=== PATIENT | male | born 1980 | race African-American/Black ===

== ENCOUNTER 2023-11-01 18:36 | Emergency (ER) | payer SELFPAY ==
[2023-11-01 18:43] VITALS: BP 155/98; BMI 29.6
--- NOTE | 2023-11-01 18:45 | EDRN ---
PT on cell phone during entire triage and asked to return to triage when he has completed his calls.
--- NOTE | 2023-11-01 19:36 | ED.GENMED ---
History of Present Illness
General
Chief Complaint: Abdominal Symptoms
Source: patient
Exam Limitations: none
Time Seen by Provider: 11/01/23 19:34
Nursing documentation reviewed up to this point in time: agreed with
History of Present Illness
History of Present Illness:
Patient is a 43-year-old male who presents to the ER complaining nausea vomiting. Patient was out last night and had 4 shots of tequila (last drink at 1:30 AM) but started vomiting right after and has vomited since. He denies any abdominal pain
fever chills no other sick contacts at home.
Past History
Past History
ED Past Medical History: None; Negative Asthma, HTN, Hypercholesterolemia or NIDDM
ED Past Surgical History: None
Social History
Tobacco: Smoker
Alcohol: Occasional
Personal: Single
Living: alone
Review of Systems
Review of Systems
Allergies reviewed?: Yes
Other source history: family
All Other Systems: ROS reviewed and negative except as documented in HPI and ROS
Constitutional: Reports no symptoms; Denies fever, fatigue or chills
Respiratory: Reports no symptoms
Cardiac: Reports no symptoms
ABD/GI: Reports nausea and vomiting; Denies abdominal pain or diarrhea
: Reports no symptoms
Skin: Reports no symptoms
Neurological: Reports no symptoms
Psychiatric: Reports no symptoms
Phy Exam
General Physical Exam
General Presentation: no apparent distress
General age: appears stated age
General Skin: warm and dry
General Habitus: normal
General Mental: alert
General Hydration: appears well hydrated
Cardiovascular Exam
Cardiovascular Exam: regular rate/rhythm, no murmur and normal peripheral pulses
Pulmonary Exam
Pulmonary Exam: lungs clear and no respiratory distress
Gastrointestinal Exam
Gastrointestinal Exam: normal bowel sounds, non tender and soft
Neurological Exam
Neurological Exam: alert and oriented x3
Musculoskeletal Exam
Musculoskeletal Exam: full ROM
Skin Exam
Skin Exam: normal color and warm/dry
Psychiatric Exam
Psychiatric Exam: normal mood/affect
Course
Orders/Labs/Results
Orders:
Orders
11/01/23 20:22
IV Insert/Care/Rem.- Treatment PRN
0.9% Sodium Chloride 1000 ml [Nss] 1,000 ml IV BOLUS
11/01/23 20:23
Ondansetron Injectable [Zofran] 4 mg IV NOW STA
11/01/23 20:34
Complete Blood Count/With Diff Urgent
Comprehensive Metabolic Panel Urgent
Lipase Urgent
Abnormal Lab Results
11/01/23
20:34
MCH 31.8 H pg
(27.0-31.0)
Absolute Neuts (auto) 7.1 H 10^3/uL
(1.4-6.5)
Glucose 112 H mg/dl
(70-99)
Albumin 5.1 H g/dl
(3.5-5.0)
11/01/23 20:34
11/01/23 20:34
Vital Signs
Initial and Last Documented VS:
Initial Vital Signs
Temp Pulse Resp BP Pulse Ox
98 F 83 16 155/98 98
11/01/23 18:43 11/01/23 18:43 11/01/23 18:43 11/01/23 18:43 11/01/23 18:43
Last Documented Vital Signs
Temp Pulse Resp BP Pulse Ox
98 F 72 18 131/88 99
11/01/23 18:43 11/01/23 22:21 11/01/23 22:21 11/01/23 22:21 11/01/23 22:21
MDM/Problems Addressed
Differential Diagnosis Includes:
Not limited to viral syndrome, vomiting related to alcohol use dehydration
MDM/Problems Addressed:
Patient consumed alcohol last night for shots and started vomiting around 1:30 AM after drinking tequila. He has vomited intermittently throughout the day. He denies any abdominal pain fever chills no other sick contacts. Patient presents awake
alert no acute distress afebrile normal white count stable labs normal renal function. Patient received Zofran fluids feeling much better tolerated oral fluids .Feels well enough to go home . Likely from alcohol use.
*Pulse Oximetry
Patient hypoxic: no
*Critical Care Note
Total Time (30-74mins, 75-104mins- exclusive of procedures): Not Applicable
ED Attending Note
-
Portions of this chart may have been created with voice recognition software.� Occasional wrong word or��sound alike� substitutions may have occurred due to the inherent limitations of voice recognition software.
Discharge Plan
Departure
Patient Disposition: Home (Routine Discharge)
Date of Disposition: 11/01/23
Time of Disposition: 22:44
Patient with high blood pressure during this ER visit?: Yes
Condition: Fair
Covid-19: Not Applicable
Discharge Problem:
Nausea & vomiting
Instructions: Nausea and Vomiting, Adult (DC)
Referrals:
UNKNOWN - PT DOES,NOT KNOW [Family Provider] -
Activity Restrictions/Additional Instructions:
Clear liquids for the next 24 hours follow bland solid foods.
Follow-up with your family doctor in the next several days as needed.
return if any worsening of symptoms
Interventions
Interventions:
*Risk Screen - Suicide Last Done: 11/01/23 18:43
*Neglect/Abuse Screening Last Done: 11/01/23 18:43
*ED COVID-19 Vaccine History Last Done: 11/01/23 18:43
AT-Zcmtmy-Mingbioacq Assessment Last Done: 11/01/23 20:22
Discharge Date and Time
Print Language: KHMER
[2023-11-01] MEDS: ZOFRAN 4 MG IV (20:34)
[2023-11-01] MEDS: NSS 1000 IV (20:34)
[2023-11-01 20:42] LABS: % Basophils 0.2 % (0-2); % Eosinophils 1.7 % (0-6); % Immature Granulocytes 0.4 % (0-0.5); % Lymphocytes 20.8 % (20.5-51.1); % Neutrophils 71.9 % (42.2-75.2); Absolute Eosinophils 0.2 10^3/uL (0-0.7); Absolute Lymphocytes 2.1 10^3/uL (1.2-3.4); Absolute Monocytes 0.5 10^3/uL (0.1-0.6); Absolute Neutrophils 7.1 10^3/uL (1.4-6.5); Hematocrit 43.2 % (39.0-52.0); Hemoglobin 15.5 g/dL (13.0-18.0); Mean Corp Hgb Conc. 35.9 g/dL (33.0-37.0); Mean Corpuscular Hgb 31.8 pg (27.0-31.0); Mean Corpuscular Volume 88.7 fL (80.0-94.0); Nucleated Red Blood Cells % 0 % (-); Platelet Count 239 10^3/uL (130-400); Red Blood Cell Count 4.87 10^6/uL (4.70-6.10); Red Cell Dist. Width 13.7 % (11.5-14.5); White Blood Cell Count 9.9 10^3/uL (4.8-10.8)
[2023-11-01 21:06] LABS: ALT (SGPT) 25 U/L (0-50); AST (SGOT) 33 U/L (17-59); Albumin 5.1 g/dl (3.5-5.0); Alkaline Phosphatase 47 U/L (38-126); Blood Urea Nitrogen 15 mg/dl (9-20); Calcium 10.2 mg/dl (8.4-10.2); Carbon Dioxide 25 mmol/L (22-30); Chloride 104 mmol/L (98-107); Estimated Creatinine Clearance 97 ml/min; Glucose 112 mg/dl (70-99); Lipase 186 U/L (23-300); Potassium 4.4 mmol/L (3.5-5.1); Sodium 139 mmol/L (135-145); Total Bilirubin 1.1 mg/dl (0.2-1.3); Total Protein 8.1 g/dl (6.3-8.2); eGFR > 60.00
[2023-11-01 22:21] VITALS: BP 131/88
== END 2023-11-01 23:02 | disposition home or self-care (01) ==
LOC: EMR 18:36
PROVIDERS: Nurse Practitioner; EMERGENCY PHYSICIAN Emergency Medicine
DX: R11.2 Nausea with vomiting, unspecified (principal); F17.200 Nicotine dependence, unspecified, uncomplicated
CPT/HCPCS: 99283; 96374; 80053; 83690; 85025

== ENCOUNTER 2024-06-02 14:04 | Emergency (ER) | payer OTHER, SELFPAY ==
[2024-06-02 14:09] VITALS: BP 136/78
[2024-06-02 14:52] LABS: % Basophils 0.3 % (0-2); % Eosinophils 1.4 % (0-6); % Immature Granulocytes 0.3 % (0-0.5); % Lymphocytes 27.3 % (20.5-51.1); % Monocytes 6.9 % (1.7-9.3); % Neutrophils 63.8 % (42.2-75.2); Absolute Eosinophils 0.1 10^3/uL (0-0.7); Absolute Lymphocytes 2.6 10^3/uL (1.2-3.4); Absolute Monocytes 0.7 10^3/uL (0.1-0.6); Absolute Neutrophils 6.1 10^3/uL (1.4-6.5); Hematocrit 53.8 % (39.0-52.0); Hemoglobin 18.1 g/dL (13.0-18.0); Mean Corp Hgb Conc. 33.6 g/dL (33.0-37.0); Mean Corpuscular Hgb 31.4 pg (27.0-31.0); Mean Corpuscular Volume 93.4 fL (80.0-94.0); Nucleated Red Blood Cells % 0 % (-); Platelet Count 238 10^3/uL (130-400); Red Blood Cell Count 5.76 10^6/uL (4.70-6.10); Red Cell Dist. Width 13.5 % (11.5-14.5); White Blood Cell Count 9.5 10^3/uL (4.8-10.8)
[2024-06-02 15:05] LABS: ALT (SGPT) 34 U/L (0-50); AST (SGOT) 30 U/L (17-59); Albumin 5.4 g/dl (3.5-5.0); Alkaline Phosphatase 48 U/L (38-126); Blood Urea Nitrogen 25 mg/dl (9-20); Calcium 10.5 mg/dl (8.4-10.2); Carbon Dioxide 29 mmol/L (22-30); Chloride 95 mmol/L (98-107); Glucose 160 mg/dl (70-99); Potassium 4.6 mmol/L (3.5-5.1); Sodium 137 mmol/L (135-145); Total Bilirubin 2.4 mg/dl (0.2-1.3); Total Protein 9.4 g/dl (6.3-8.2); eGFR 59.61
--- NOTE | 2024-06-02 18:52 | ED.GENMED ---
History of Present Illness
General
Chief Complaint: Abdominal Symptoms
Source: patient
Exam Limitations: none
Time Seen by Provider: 06/02/24 18:00
Nursing documentation reviewed up to this point in time: agreed with
History of Present Illness
History of Present Illness:
Patient is a 43-year-old male with history of hypertension presenting to the emergency department for evaluation of abdominal symptoms. Patient states that 2 days ago he was constipated although he did have a bowel movement. He states that since
then he has been nauseous, with very little appetite. He has not been eating over the past few days. He states he feels very weak and tired. He has had a few episodes of diarrhea. Patient denies any urinary complaints. He denies any known fever
although states he has felt chilly. He denies any focal abdominal pain. No chest pain or shortness of breath.
Patient states he did take 'a bunch 'of Maalox to help ease constipation.
Past History
Past History
ED Past Medical History: None; Negative Asthma, HTN, Hypercholesterolemia or NIDDM
ED Past Surgical History: None
Social History
Tobacco: Smoker
Alcohol: Occasional
Personal: Single
Living: alone
Review of Systems
Review of Systems
Allergies reviewed?: Yes
All Other Systems: ROS reviewed and negative except as documented in HPI and ROS
Phy Exam
Physical Exam
Physical Exam:
Vitals: Mildly hypertensive, otherwise stable vital signs. Afebrile
General: Patient is well appearing, no acute distress. Nontoxic appearing
Skin: Warm and dry, no rashes or lesions
Head: Normocephalic, atraumatic
Eyes: Sclera nonicteric. EOMs intact. No nystagmus.
Throat: Protecting airway
Neck: Normal ROM, no cervical spine tenderness, no meningismus
Cardiac: Regular rate and rhythm, no murmurs.
Pulm: Normal respiratory effort. No wheezing. O2 saturation 98 on room air.
Abdomen: Abdomen soft. No focal abdominal tenderness. No rebound tenderness or guarding. No CVA tenderness.
Extremities: No evidence of cyanosis or edema
Neuro: AAOx3. Grossly intact.
Psychiatric: Normal affect.
Course
Orders/Labs/Results
Orders:
Orders
06/02/24 14:18
Complete Blood Count/With Diff Urgent
Comprehensive Metabolic Panel Urgent
Direct Bilirubin Urgent
Comment: ADD ON
Lipase Urgent
Comment: ADD ON
06/02/24 18:36
Add On- LAB Urgent
Tests Added?: lipase
0.9% Sodium Chloride 1000 ml [Nss] 1,000 ml IV BOLUS
Ondansetron Injectable [Zofran] 4 mg IV NOW STA
US Abdomen Complete/Upper Urgent
Comment:
Reason For Exam: Anorexia, nausea
06/02/24 18:37
CR Chest - 2 Views Urgent
Comment:
Reason For Exam: URI symptoms
06/02/24 19:09
COVID-19 Antigen Urgent
Source: Nasal Swab
Influenza A+B Rapid Molecular Urgent
CAROL Source: Nasal Swab
Specimen Description:
06/02/24 20:35
Add On- LAB Urgent
Tests Added?: direct bilirubin
Abnormal Lab Results
06/02/24
14:18
Hgb 18.1 H g/dL
(13.0-18.0)
Hct 53.8 H %
(39.0-52.0)
MCH 31.4 H pg
(27.0-31.0)
Absolute Monos (auto) 0.7 H 10^3/uL
(0.1-0.6)
Chloride 95 L mmol/L
(98-107)
BUN 25 H mg/dl
(9-20)
Creatinine 1.5 H mg/dL
(0.7-1.3)
Glucose 160 H mg/dl
(70-99)
Calcium 10.5 H mg/dl
(8.4-10.2)
Total Bilirubin 2.4 H mg/dl
(0.2-1.3)
Total Protein 9.4 H g/dl
(6.3-8.2)
Albumin 5.4 H g/dl
(3.5-5.0)
06/02/24 14:18
06/02/24 14:18
Vital Signs
Initial and Last Documented VS:
Initial Vital Signs
Temp Pulse Resp BP Pulse Ox
98.7 F 74 16 136/78 98
06/02/24 14:09 06/02/24 14:09 06/02/24 14:09 06/02/24 14:09 06/02/24 14:09
Last Documented Vital Signs
Temp Pulse Resp BP Pulse Ox
98.7 F 73 18 140/88 97
06/02/24 14:09 06/02/24 22:02 06/02/24 22:02 06/02/24 22:02 06/02/24 22:02
MDM/Problems Addressed
Differential Diagnosis Includes:
Not limited to: Viral syndrome including COVID, influenza; viral gastroenteritis, cholelithiasis, choledocholithiasis, enteritis, constipation, etc.
MDM/Problems Addressed:
43-year-old male presenting with a few days of nausea, anorexia, and fatigue. No fevers, abdominal pain, or vomiting. Patient mildly hypertensive, otherwise stable vital signs on arrival. Physical exam as above. Abdomen is soft and nontender
throughout with no focal tenderness. No rebound tenderness or guarding. No tenderness McBurney's point. Negative Anna sign. Cardio/pulmonary assessment unremarkable. Basic labs initiated in triage and reviewed. CBC without clinically
significant abnormalities. There is no leukocytosis. Chemistry does show a mild JOHN likely prerenal secondary to poor p.o. intake over the past few days. T. bili elevated to 2.4. LFTs, lipase normal. Differential broad although overall low
suspicion for acute infectious process in abdomen given patient is afebrile with benign abdominal exam and no leukocytosis. Given nausea with elevated T. bili�will obtain abdominal ultrasound. Will check viral swabs. Will treat with IV fluids,
Zofran and reassess.
Update: Viral swabs negative. Abdominal ultrasound without any clinically significant abnormalities. Direct bilirubin within normal range suggesting no evidence of obstructive jaundice. On reassessment�patient feels much improved from arrival to
the emergency department. He has produced urine. Ultimately�feel patient stable for discharge home with primary care follow-up. Symptoms possibly due to viral cause. Advised to stay well-hydrated and have lab work repeated in 1 to 2 weeks to
ensure kidney function improving. Return precautions discussed. Patient comfortable this plan.
Chronic conditions affecting care:
Hypertension
Acute Exacerbation and/or Progression of Chronic Illness:
Acutely hypertensive
*Radiology
Radiology exam reviewed: preliminary read by ED provider (Chest x-ray reviewed by ut-no acute abnormalities) and radiology read reviewed
*Pulse Oximetry
Patient hypoxic: no
*EKG
Interpreted by ED Provider?: NA
*Melter Supervisor Interpretation
Rate: Melter Supervisor- N/A
*Critical Care Note
Total Time (30-74mins, 75-104mins- exclusive of procedures): Not Applicable
ED Attending Note
-
Portions of this chart may have been created with voice recognition software.� Occasional wrong word or��sound alike� substitutions may have occurred due to the inherent limitations of voice recognition software.
Discharge Plan
Departure
Patient Disposition: Home (Routine Discharge)
Date of Disposition: 06/02/24
Time of Disposition: 21:46
Patient with high blood pressure during this ER visit?: Yes
Condition: Good
Covid-19: Negative COVID-19
Discharge Problem:
JOHN (acute kidney injury), Nausea, Acute dehydration
Instructions: Acute kidney injury, Dehydration, Adult (DC), BLOOD PRESSURE
Referrals:
PRIVATE,PHYSICIAN [Family Provider] - Follow up in 1 week
Activity Restrictions/Additional Instructions:
Return to the emergency department with any high fevers, intractable nausea/vomiting, severe abdominal pain, persistent lack of appetite, signs of severe dehydration including lack of urinary production, etc. or worsening in any symptoms
-As discussed�your kidney function was elevated on your lab work in the emergency department. You were given a liter of IV fluids. You should have your labs rechecked with your primary care in 1 to 2 weeks to ensure values normalize
-It is important to stay well-hydrated. I would recommend a bland diet over the next 2 days and slowly advance as tolerated.
-Follow-up with your PCP for further evaluation/management as needed and to ensure that your lab values normalized
Monitor your symptoms closely and return to the emergency department with any acute worsening/new symptoms or any other concerns
Interventions
Interventions:
*Risk Screen - Suicide Last Done: 06/02/24 14:09
*Neglect/Abuse Screening Last Done: 06/02/24 14:09
ED- Fall Risk Assessment Last Done: 06/02/24 19:54
*Nursing Disposition Last Done: 06/02/24 22:03
JW-Hbkiog-Tekejuetab Assessment Last Done: 06/02/24 19:54
Discharge Date and Time
Discharge Date/Time: 06/02/24 22:03
Print Language: ARABIC
[2024-06-02 19:15] LABS: Lipase 227 U/L (23-300)
[2024-06-02] MEDS: NSS 1000 IV (19:18)
[2024-06-02] MEDS: ZOFRAN 4 MG IV (19:18)
[2024-06-02 19:44] LABS: COVID-19 Antigen Negative (Negative)
[2024-06-02 21:07] LABS: Direct Bilirubin 0.4 mg/dl (0.0-0.4)
[2024-06-02 22:02] VITALS: BP 140/88
== END 2024-06-02 22:03 | disposition home or self-care (01) ==
LOC: EMR 14:04
PROVIDERS: Emergency Medicine; Physician Assistant; EMERGENCY PHYSICIAN Student in an Organized Health Care Education/Training Program
DX: N17.9 Acute kidney failure, unspecified (principal); R11.0 Nausea; E86.0 Dehydration; I10 Essential (primary) hypertension; F17.200 Nicotine dependence, unspecified, uncomplicated
CPT/HCPCS: 99284; 71046; 76700; 80053; 82248; 83690; 85025; 87502; 87811